=== PATIENT | male | born 1985 | race Caucasian/White ===

== ENCOUNTER 2023-05-18 12:19 | Outpatient (RCR) | payer OTHER, SELFPAY | END 2023-05-18 23:59 | disposition home or self-care (01) | LOC: RPT 12:19 | PROVIDERS: ATTENDING PHYSICIAN Family Medicine | DX: G25.89 Other specified extrapyramidal and movement disorders (principal); Z73.6 Limitation of activities due to disability; M62.81 Muscle weakness (generalized) | CPT/HCPCS: 97110; 97162 ==